=== PATIENT | female | born 1980 | race Caucasian/White ===

== ENCOUNTER → 2020-03-25 | Outpatient (CLI) | payer BC | LOC: LAB 13:00 | PROVIDERS: ATTEND Family Medicine | DX: U07.1 COVID-19 (principal) ==

== ENCOUNTER → 2020-04-08 | Outpatient (CLI) | payer BC | LOC: LAB 09:05 | PROVIDERS: ATTEND Family Medicine | DX: U07.1 COVID-19 (principal) ==

== ENCOUNTER 2020-04-21 08:21 | Emergency (ER) | payer BC ==
[~2020-04-21] VITALS: Ht 162.6 cm; Wt 99.8 kg
[2020-04-21 10:21] LABS: ABSOLUTE NEUTROPHILS 2.8 thou/uL (1.4-8.2); BASOPHILS 0.4 % (0.0-2.0); HEMATOCRIT 37.3 % (37.0-47.0); HEMOGLOBIN 12.7 gm/dL (12.0-15.0); LYMPHOCYTES 30.7 % (24.0-44.0); MCHC 34.1 g/dL (28.0-37.0); MONOCYTES 8.4 % (1.0-8.0); PLATELET COUNT 347 thou/uL (150-400); POLYS 59.5 % (36.0-66.0); RBC 4.39 mil/uL (4.20-5.00); RDW 16.2 % (10.5-14.5); WBC 4.7 thou/uL (4.0-11.0)
[2020-04-21 10:32] LABS: ANION GAP 10 mmol/L (7-16); BUN 10 mg/dL (7-18); CHLORIDE 101 mmol/L (98-107); CO2 29 mmol/L (21-32); CREATININE 0.6 mg/dL (0.6-1.0); GLUCOSE 90 mg/dL (74-106); POTASSIUM 4.3 mmol/L (3.5-5.1); SODIUM 140 mmol/L (136-145)
[2020-04-21 10:42] LABS: TROPONIN-I <0.06 ng/mL (<0.06)
--- NOTE | 2020-04-21 12:23 | EKG ---
[facility] [place] [address] ELECTROCARDIOGRAM REPORT Name: EVERTON AKINS Room #: DEP [facility]#: [id number] Admission: 04/21/20 Attend Phys: Discharge: 04/21/20 Date of : 80 Report #: [id number] THIS REPORT FOR: cc: Marily London MD, Nora P. MD Santiago, Patrick MD [facility] ~ THIS REPORT FOR: //name// [facility] ED Test Date: 2020-04-21 Test Time: 09:54:08 Pat Name: EVERTON AKINS Department: Room: Gender: F Public Accountant: esheets : 1980 Requested By: Sawyer Van Order Number: [id number] MD: Marcos Lund Measurements Intervals [place] Rate: 71 P: 13 IA: 194 QRS: 22 QRSD: 90 T: -4 QT: 381 QTc: 414 Interpretive Statements Sinus rhythm Low voltage, precordial leads Abnormal R-wave progression, early transition Borderline T abnormalities, inferior leads No previous ECG available for comparison Electronically Signed On 04-21-2020 12:23:01 CDT by Marcos Lund [email or web address] <ELECTRONICALLY SIGNED> By: Marcos Lund MD, [facility] 04/21/20 1223 [id number] Marcos Lund MD, [facility] /EPI
== END 2020-04-21 11:52 | disposition home or self-care (01) ==
LOC: ER 08:21
PROVIDERS: Emergency Medicine
DX: B34.9 Viral infection, unspecified (principal); R42 Dizziness and giddiness; J02.9 Acute pharyngitis, unspecified; R43.8 Other disturbances of smell and taste; R07.9 Chest pain, unspecified

== ENCOUNTER → 2020-05-05 | Outpatient (CLI) | payer BC | LOC: LAB 12:13 | PROVIDERS: ATTEND Family Medicine | DX: Z20.828 Contact with and (suspected) exposure to other viral communicable diseases (principal) ==

== ENCOUNTER → 2020-10-17 | Outpatient (CLI) | payer BC | LOC: LAB 10:11 | PROVIDERS: ATTEND Family Medicine | DX: J02.9 Acute pharyngitis, unspecified (principal); R50.9 Fever, unspecified; R51.9 Headache, unspecified; M79.10 Myalgia, unspecified site; Z20.822 Contact with and (suspected) exposure to COVID-19 ==

== ENCOUNTER → 2020-12-12 | Outpatient (CLI) | payer OTHER | LOC: LAB 11:07 | PROVIDERS: ATTEND Family Medicine | DX: R50.9 Fever, unspecified (principal); Z20.822 Contact with and (suspected) exposure to COVID-19 ==